=== PATIENT | male | born 1980 | race Caucasian/White ===

== ENCOUNTER 2017-06-11 01:21 | Emergency (ER) | payer OTHER ==
[~2017-06-11] VITALS: Ht 180.3 cm; Wt 97.5 kg
[~2017-06-11 01:21] MED LIST: ACCUNEB SO1.25 MG/1 INH; AMBIEN; CYCLOBENZAPRINE5 MG PO; DELTASONE20 MG PO; DICLOFENAC SODI75 MG PO; FLEXERIL PO; HYDROCODON-ACE1 EAC7 PO; HYDROCODONE-AP1 EAC6 PO; IBUPROFEN 200200 M1; IBUPROFEN 800800 M1 PO; MEDROLDOSEPACK PO; MOBIC7.5 MG PO; NAPROSYN500 MG PO; NOHOMEMEDICATIONS; NORCO 5-325 TA1 EAC1 PO; NORCO 5-325 TA1 EACH PO; PREDNISONE 10 M10 MG PO; PROAIR HFA8.5 GM; ROBAXIN 750 MG750 M1 PO; VENTOLIN HFA 1818 GM INH; ZANAFLEX4 MG PO
[2017-06-11] MEDS ORDERED: NAPROSYN500 M1 PO (03:59)
[2017-06-11] MEDS ORDERED: AMITRIPTYLINE H25 M2 PO (03:59)
[2017-06-11 04:04] VITALS: BP 122/64
== END 2017-06-11 04:05 | disposition home or self-care (01) ==
LOC: M.ERS 01:21
DX: S20.211A Contusion of right front wall of thorax, initial encounter (principal); J45.909 Unspecified asthma, uncomplicated; F17.210 Nicotine dependence, cigarettes, uncomplicated; Z98.890 Other specified postprocedural states; W17.89XA Other fall from one level to another, initial encounter; Y93.89 Activity, other specified; Y92.89 Other specified places as the place of occurrence of the external cause; Y99.8 Other external cause status

== ENCOUNTER 2019-02-10 23:00 | Emergency (ER) | payer OTHER ==
[~2019-02-10] VITALS: Ht 180.3 cm; Wt 115.7 kg
[~2019-02-10 23:00] MED LIST changes: +AMITRIPTYLINE H25 M2 PO; +NAPROSYN500 M1 PO
[2019-02-10] MEDS ORDERED: NORFLEX100 MG PO (23:54)
[2019-02-10] MEDS ORDERED: MEDROLDOSEPACK PO (23:54)
[2019-02-10] MEDS ORDERED: TORADOL 10 MG T10 MG PO (23:54)
[2019-02-11] MEDS ORDERED: SUBOXONE
[2019-02-11 00:18] VITALS: BP 118/88
== END 2019-02-11 00:19 | disposition home or self-care (01) ==
LOC: M.ERS 23:00
DX: M54.5 Low back pain (principal); J45.909 Unspecified asthma, uncomplicated; F17.210 Nicotine dependence, cigarettes, uncomplicated